=== PATIENT | female | born 1935 | race Caucasian/White ===

== ENCOUNTER 2017-06-12 10:39 | Inpatient (IN) | payer BC, MEDICARE, OTHER ==
[~2017-06-12] VITALS: Ht 162.6 cm; Wt 72.2 kg
[2017-06-12] MEDS ORDERED: SODIUM CHLORIDE 0.9% 1,000 ML IVB ONE (10:51)
[2017-06-12] MEDS ORDERED: LEVOFLOXACIN 500 MG/100 ML PREMIX BAG IV ONE (11:00)
[2017-06-12 11:24] LABS: Hematocrit 36.2 % (36.0-46.0); Hemoglobin 11.7 g/dL (12.2-16.2); Mean Corpuscular Hgb Conc. 32.4 g/dL (32.0-36.0)
[2017-06-12 11:25] LABS: Mean Corpuscular Hemoglobin 26.4 pg (28.0-32.0); Mean Corpuscular Volume 81.4 fL (80.0-100.0); Platelet Count (auto) 471 10^3/uL (140-450); Red Blood Cells 4.44 10^6/uL (4.0-5.20); Red Cell Distribution Width 14.8 % (11.8-14.3); White Blood Cell 25.4 10^3/uL (4.4-10.8)
[2017-06-12 11:28] LABS: Band Neutrophils % (manual) 0; Basophils % (manual) 0 (0.0-2.0); Blast Cells 0; Eosinophils % (manual) 0 (0-7); Metamyelocytes % 0; Myelocytes % 0; Promyelocytes % 0
[2017-06-12 11:33] LABS: Urine Blood 1+ /uL (Negative); Urine Specific Gravity 1.015 (1.001-1.035); Urine WBC 1563 /hpf (0 - 5); Urine WBC Clumps PRESENT /hpf (None Seen)
[2017-06-12 11:35] LABS: Urine Bacteria MODERATE /hpf (None Seen)
[2017-06-12 11:51] LABS: Alanine Aminotransferase 19 U/L (13-56); Albumin 2.5 g/dL (3.4-5.0); Alkaline Phosphatase 125 U/L (45-117); Anion Gap 11 (5-15); Aspartate Aminotransferase 15 U/L (15-37); BUN/Creatinine Ratio 29.3; Bilirubin, Total 1.1 mg/dL (0.2-1.0); Blood Urea Nitrogen 58 mg/dL (7-18); Calcium 12.8 mg/dL (8.5-10.1); Carbon Dioxide 27 mmol/L (21-32); Chloride 93 mmol/L (98-107); GFR African American 31 mL/min; GFR Non-African American 26 mL/min; Glucose 128 mg/dL (74-106); Lymphocytes % (manual) 8 (10.0-50.0); Magnesium 2.4 mg/dL (1.6-2.6); Monocytes % (manual) 5 (0-12); Potassium 3.1 mmol/L (3.5-5.1); Reactive Lymphocytes 3; Sodium 131 mmol/L (136-145); Total Protein 7.9 g/dL (6.4-8.2)
[2017-06-12] MEDS ORDERED: LORazepam 0.5 MG TAB PO PRN (12:30)
[2017-06-12] MEDS ORDERED: NITROGLYCERIN 0.4 MG SL TAB SL PRN (12:30)
[2017-06-12] MEDS ORDERED: FUROSEMIDE 40 MG/4 ML VIAL IV ONE ×2 (12:30→18:00)
[2017-06-12] MEDS ORDERED: SODIUM CHLORIDE 0.9% 1,000 ML IV ONE (12:30)
[2017-06-12] MEDS ORDERED: PROMETHAZINE HCL 25 MG/ML 1ML IV PRN (12:30)
[2017-06-12] MEDS ORDERED: POTASSIUM CHL 20MEQ/50ML 50 ML IV ONE (12:30)
[2017-06-12] MEDS ORDERED: PIPERACILLIN-TAZOB 3.375GM 100 ML IV ONE (12:30)
[2017-06-12] MEDS ORDERED: POTASSIUM CHL 20 Meq TABLET PO ONE ×2 (12:30→18:00)
[2017-06-12] MEDS ORDERED: MORPHINE SULFATE 10 MG/ML INJ 1ML SDV IV PRN (12:30)
[2017-06-12] MEDS ORDERED: TEMAZEPAM 15 MG CAP PO PRN (12:30)
[2017-06-12] MEDS: SODIUM CHLORIDE 0.9% 1,000 ML IV SCH (13:30)
[2017-06-12 14:29] VITALS: BP 124/58
[2017-06-12 18:01] VITALS: BP 106/53
[2017-06-12 18:42] LABS: Hematocrit 30.7 % (36.0-46.0)
[2017-06-12] MEDS: PIPERACILLIN-TAZOB 3.375GM 100 ML IV SCH (19:36)
[2017-06-12 20:00] VITALS: BP 126/59
[2017-06-12 22:00] VITALS: BP 126/59
[2017-06-13 01:13] LABS: Hematocrit 31.6 % (36.0-46.0); Hemoglobin 10.4 g/dL (12.2-16.2)
[2017-06-13] MEDS: SODIUM CHLORIDE 0.9% 1,000 ML IV SCH ×3 (01:20→19:56)
[2017-06-13] MEDS: PIPERACILLIN-TAZOB 3.375GM 100 ML IV SCH ×4 (01:20→19:16)
[2017-06-13 05:00] VITALS: BP 123/57
[2017-06-13 06:48] LABS: Eosinophils # (auto) 0.2 uL; Eosinophils % (auto) 0.7 % (0.0-7.0); Hemoglobin 10.3 g/dL (12.2-16.2); Monocytes # (auto) 1.8 uL
[2017-06-13 06:51] LABS: Basophils # (auto) 0 uL; Basophils % (auto) 0.2 % (0.0-2.0); Hematocrit 31.8 % (36.0-46.0); Lymphocytes # (auto) 1.9 uL; Lymphocytes % (auto) 8.3 % (10.0-50.0); Mean Corpuscular Hemoglobin 26.5 pg (28.0-32.0); Mean Corpuscular Hgb Conc. 32.3 g/dL (32.0-36.0); Monocytes % (auto) 8.3 % (0.0-12.0); Neutrophils # (auto) 18.3 uL; Neutrophils % (auto) 82.5 % (37.0-80.0); Platelet Count (auto) 381 10^3/uL (140-450); Red Blood Cells 3.88 10^6/uL (4.0-5.20); Red Cell Distribution Width 15.2 % (11.8-14.3); White Blood Cell 22.2 10^3/uL (4.4-10.8)
[2017-06-13 07:07] LABS: BUN/Creatinine Ratio 29.4; Bilirubin, Total 0.8 mg/dL (0.2-1.0); Calcium 12.4 mg/dL (8.5-10.1); Potassium 3.4 mmol/L (3.5-5.1); Total Protein 6.8 g/dL (6.4-8.2)
[2017-06-13 09:00] VITALS: BP 144/68
[2017-06-13] MEDS: PANTOPRAZOLE 40 MG TAB PO SCH (10:04)
[2017-06-13] MEDS ORDERED: TRAM50TA2 PO (10:57)
[2017-06-13] MEDS ORDERED: TRIATAB3 PO (10:57)
[2017-06-13] MEDS ORDERED: OXYB15TA12 PO (10:57)
[2017-06-13] MEDS ORDERED: LEVO125T6 PO (10:57)
[2017-06-13] MEDS ORDERED: GABA-497 PO (10:57)
[2017-06-13] MEDS ORDERED: VANCOMYCIN PER PHARMACY 0 MG IV SCH (12:00)
[2017-06-13] MEDS ORDERED: SODIUM CHLORIDE 0.9% 1,000 ML IV ONE (12:00)
[2017-06-13] MEDS ORDERED: hydrALAZINE HCL 20 MG/ML VL IV PRN (12:00)
[2017-06-13 13:00] VITALS: BP 135/65
[2017-06-13] MEDS ORDERED: VANCOMYCIN 1GM/250ML 250 ML IV ONE (13:00)
[2017-06-13 17:01] VITALS: BP 130/51
[2017-06-13 18:09] LABS: BUN/Creatinine Ratio 28.2; Calcium 11.1 mg/dL (8.5-10.1)
[2017-06-13 18:32] LABS: Potassium 2.9 mmol/L (3.5-5.1)
[2017-06-13] MEDS ORDERED: POTASSIUM CHL 20MEQ/50ML 50 ML IV ONE (19:15)
[2017-06-13 22:30] VITALS: BP 128/86
[2017-06-13] MEDS: MORPHINE SULFATE 10 MG/ML INJ 1ML SDV IV PRN (23:51)
[2017-06-14] MEDS: PIPERACILLIN-TAZOB 3.375GM 100 ML IV SCH ×2 (01:14→06:36)
[2017-06-14] MEDS: MORPHINE SULFATE 10 MG/ML INJ 1ML SDV IV PRN ×3 (04:44→17:12)
[2017-06-14 05:31] LABS: Basophils # (auto) 0.1 uL; Basophils % (auto) 0.4 % (0.0-2.0); Hematocrit 31.2 % (36.0-46.0); Lymphocytes # (auto) 2.1 uL; Monocytes # (auto) 1.2 uL; Neutrophils # (auto) 14.4 uL; Neutrophils % (auto) 79.3 % (37.0-80.0); Red Blood Cells 3.83 10^6/uL (4.0-5.20); White Blood Cell 18.2 10^3/uL (4.4-10.8)
[2017-06-14 05:36] LABS: Eosinophils # (auto) 0.3 uL; Eosinophils % (auto) 1.9 % (0.0-7.0); Lymphocytes % (auto) 11.6 % (10.0-50.0); Mean Corpuscular Hemoglobin 26.1 pg (28.0-32.0); Mean Corpuscular Hgb Conc. 32.1 g/dL (32.0-36.0); Mean Corpuscular Volume 81.4 fL (80.0-100.0); Monocytes % (auto) 6.8 % (0.0-12.0); Platelet Count (auto) 366 10^3/uL (140-450); Red Cell Distribution Width 15.1 % (11.8-14.3)
[2017-06-14 05:44] VITALS: BP 115/55
[2017-06-14 05:48] LABS: INR 1.22 (0.9-1.15); Partial Thromboplastin Time 26.4 sec (22.64-33.71); Prothrombin Time 13.3 sec (9.37-12.3)
[2017-06-14 06:03] LABS: BUN/Creatinine Ratio 26.5; Calcium 11.2 mg/dL (8.5-10.1); Magnesium 1.8 mg/dL (1.6-2.6)
[2017-06-14 06:15] LABS: Potassium 2.8 mmol/L (3.5-5.1)
[2017-06-14] MEDS: SODIUM CHLORIDE 0.9% 1,000 ML IV SCH ×2 (06:36→15:30)
[2017-06-14] MEDS: LEVOTHYROXINE SODIUM 50 MCG TAB PO SCH (06:36)
[2017-06-14] MEDS: PANTOPRAZOLE 40 MG TAB PO SCH (09:48)
[2017-06-14] MEDS ORDERED: VANCOMYCIN 1,250 MG in D5W 5% 250 ML IV SCH (10:00)
[2017-06-14 10:16] LABS: Free T4 (Free Thyroxine) 1.08 ng/dL (0.89-1.76); T3 Total 0.37 ng/mL (0.60-1.81)
[2017-06-14] MEDS ORDERED: POTASSIUM CHL 20 Meq TABLET PO ONE ×2 (12:00→23:00)
[2017-06-14] MEDS: POTASSIUM CHL 20MEQ/50ML 50 ML IV SCH ×2 (12:00→14:00)
[2017-06-14 13:03] VITALS: BP 125/51
[2017-06-14] MEDS ORDERED: PIPERACILLIN-TAZOB 3.375GM 50 ML IV ONE (13:45)
[2017-06-14] MEDS ORDERED: MAGNESIUM SULFATE 1GM/100ML 100 ML IV ONE (16:00)
[2017-06-14 17:00] VITALS: BP 138/64
[2017-06-14] MEDS: PIPERACILLIN-TAZOB 3.375GM 50 ML IV SCH (20:45)
[2017-06-14 22:00] VITALS: BP 154/56
[2017-06-14 22:27] LABS: Magnesium 2.2 mg/dL (1.6-2.6); Potassium 3.5 mmol/L (3.5-5.1)
[2017-06-15] MEDS: SODIUM CHLORIDE 0.9% 1,000 ML IV SCH ×3 (02:03→22:14)
[2017-06-15] MEDS: PIPERACILLIN-TAZOB 3.375GM 50 ML IV SCH ×3 (02:04→14:00)
[2017-06-15 05:00] VITALS: BP 159/61
[2017-06-15 06:01] LABS: Basophils # (auto) 0.1 uL; Eosinophils # (auto) 0.1 uL; Hematocrit 32.5 % (36.0-46.0); Hemoglobin 10.5 g/dL (12.2-16.2); Monocytes # (auto) 1.3 uL; White Blood Cell 22.4 10^3/uL (4.4-10.8)
[2017-06-15 06:05] LABS: Basophils % (auto) 0.3 % (0.0-2.0); Eosinophils % (auto) 0.5 % (0.0-7.0); Lymphocytes # (auto) 2.1 uL; Lymphocytes % (auto) 9.3 % (10.0-50.0); Mean Corpuscular Hemoglobin 26.4 pg (28.0-32.0); Mean Corpuscular Hgb Conc. 32.4 g/dL (32.0-36.0); Mean Corpuscular Volume 81.4 fL (80.0-100.0); Monocytes % (auto) 5.7 % (0.0-12.0); Neutrophils # (auto) 18.9 uL; Neutrophils % (auto) 84.2 % (37.0-80.0); Platelet Count (auto) 395 10^3/uL (140-450); Red Blood Cells 3.99 10^6/uL (4.0-5.20); Red Cell Distribution Width 14.7 % (11.8-14.3)
[2017-06-15 06:24] LABS: Calcium 12.3 mg/dL (8.5-10.1); Potassium 3.5 mmol/L (3.5-5.1)
[2017-06-15 06:28] LABS: BUN/Creatinine Ratio 20.5
[2017-06-15] MEDS: LEVOTHYROXINE SODIUM 50 MCG TAB PO SCH (06:44)
[2017-06-15] MEDS: HYDROcodone-ACET 5/325MG TAB PO PRN ×3 (07:57→22:14)
[2017-06-15 10:00] VITALS: BP 132/63
[2017-06-15] MEDS ORDERED: ZOLEDRONIC ACID 4 MG in SODIUM CHL 0.9% 100 ML IV ONE (10:00)
[2017-06-15] MEDS: PANTOPRAZOLE 40 MG TAB PO SCH (10:00)
[2017-06-15] MEDS: MORPHINE SULFATE 10 MG/ML INJ 1ML SDV IV PRN (11:51)
[2017-06-15 13:00] VITALS: BP 138/64
[2017-06-15 13:56] LABS: Eosinophils # (auto) 0.1 uL; Eosinophils % (auto) 0.6 % (0.0-7.0)
[2017-06-15 13:58] LABS: Basophils # (auto) 0 uL; Basophils % (auto) 0.2 % (0.0-2.0); Hematocrit 32.5 % (36.0-46.0); Hemoglobin 10.3 g/dL (12.2-16.2); Lymphocytes # (auto) 1.7 uL; Mean Corpuscular Hgb Conc. 31.7 g/dL (32.0-36.0); Mean Corpuscular Volume 82.1 fL (80.0-100.0); Monocytes # (auto) 0.9 uL; Monocytes % (auto) 4.2 % (0.0-12.0); Neutrophils # (auto) 18.6 uL; Nucleated Red Blood Cells % 0.1 %; Platelet Count (auto) 373 10^3/uL (140-450); Red Blood Cells 3.96 10^6/uL (4.0-5.20); Red Cell Distribution Width 15.3 % (11.8-14.3); White Blood Cell 21.4 10^3/uL (4.4-10.8)
[2017-06-15 14:12] LABS: BUN/Creatinine Ratio 20.1; Calcium 12.3 mg/dL (8.5-10.1); Potassium 3.7 mmol/L (3.5-5.1)
[2017-06-15 17:43] VITALS: BP 148/72
[2017-06-15] MEDS ORDERED: SODIUM CHLORIDE 0.9% 1,000 ML IV ONE (17:45)
[2017-06-15] MEDS ORDERED: LEVOFLOXACIN 500MG 100 ML IV SCH (17:45)
[2017-06-15] MEDS ORDERED: cefTRIAXone 1GM/50ML D5W 50 ML IV SCH (17:45)
[2017-06-15] MEDS: ACETAMINOPHEN 500 MG TAB PO PRN (20:00)
[2017-06-15] MEDS: cefTRIAXone 1GM/50ML D5W 50 ML IV SCH (20:27)
[2017-06-15 22:00] VITALS: BP 127/61
[2017-06-16 05:00] VITALS: BP 137/62
[2017-06-16 05:18] LABS: Urine Bacteria MANY /hpf (None Seen); Urine Blood 2+ /uL (Negative); Urine Mucus FEW (None Seen); Urine Specific Gravity 1.016 (1.001-1.035); Urine WBC 1839 /hpf (0 - 5); Urine WBC Clumps PRESENT /hpf (None Seen)
[2017-06-16] MEDS: HYDROcodone-ACET 5/325MG TAB PO PRN ×5 (05:57→22:55)
[2017-06-16 06:38] LABS: Basophils # (auto) 0.1 uL; Basophils % (auto) 0.4 % (0.0-2.0); Eosinophils # (auto) 0.2 uL; Eosinophils % (auto) 1.2 % (0.0-7.0); Hematocrit 28.4 % (36.0-46.0); Hemoglobin 9.2 g/dL (12.2-16.2); Lymphocytes # (auto) 1.1 uL; Lymphocytes % (auto) 5.3 % (10.0-50.0); Mean Corpuscular Hemoglobin 26.5 pg (28.0-32.0); Mean Corpuscular Hgb Conc. 32.4 g/dL (32.0-36.0); Mean Corpuscular Volume 81.9 fL (80.0-100.0); Monocytes # (auto) 0.9 uL; Monocytes % (auto) 4.6 % (0.0-12.0); Neutrophils # (auto) 18.1 uL; Neutrophils % (auto) 88.5 % (37.0-80.0); Platelet Count (auto) 297 10^3/uL (140-450); Red Blood Cells 3.46 10^6/uL (4.0-5.20); Red Cell Distribution Width 15.2 % (11.8-14.3); White Blood Cell 20.5 10^3/uL (4.4-10.8)
[2017-06-16 06:46] LABS: Calcium 11.4 mg/dL (8.5-10.1); Magnesium 2.2 mg/dL (1.6-2.6); Potassium 4.1 mmol/L (3.5-5.1)
[2017-06-16] MEDS: LEVOTHYROXINE SODIUM 50 MCG TAB PO SCH (07:01)
[2017-06-16 09:00] VITALS: BP 125/56
[2017-06-16] MEDS: PANTOPRAZOLE 40 MG TAB PO SCH (09:51)
[2017-06-16] MEDS: cefTRIAXone 1GM/50ML D5W 50 ML IV SCH (09:52)
[2017-06-16] MEDS: LEVOFLOXACIN 250MG 50 ML IV SCH (10:00)
[2017-06-16] MEDS: SODIUM CHLORIDE 0.9% 1,000 ML IV SCH ×2 (11:00→17:40)
[2017-06-16] MEDS: MORPHINE SULFATE 10 MG/ML INJ 1ML SDV IV PRN ×2 (12:41→23:29)
[2017-06-16 13:00] VITALS: BP 117/56
[2017-06-16 17:00] VITALS: BP 127/63
[2017-06-16 22:00] VITALS: BP 139/66
[2017-06-17] MEDS ORDERED: KETOROLAC TROMETH 30 MG/ML 1ML VIAL IV ONE (00:45)
[2017-06-17] MEDS: SODIUM CHLORIDE 0.9% 1,000 ML IV SCH ×4 (04:00→21:35)
[2017-06-17 05:00] VITALS: BP 133/62
[2017-06-17 06:19] LABS: Eosinophils # (auto) 0.3 uL
[2017-06-17 06:21] LABS: Basophils # (auto) 0.1 uL; Basophils % (auto) 0.4 % (0.0-2.0); Eosinophils % (auto) 2.2 % (0.0-7.0); Hematocrit 28.2 % (36.0-46.0); Lymphocytes # (auto) 1.5 uL; Lymphocytes % (auto) 9.7 % (10.0-50.0); Mean Corpuscular Hemoglobin 26.2 pg (28.0-32.0); Monocytes # (auto) 1.1 uL; Monocytes % (auto) 6.7 % (0.0-12.0); Neutrophils # (auto) 12.8 uL; Platelet Count (auto) 294 10^3/uL (140-450); Red Blood Cells 3.44 10^6/uL (4.0-5.20); Red Cell Distribution Width 15.2 % (11.8-14.3); White Blood Cell 15.8 10^3/uL (4.4-10.8)
[2017-06-17] MEDS: LEVOTHYROXINE SODIUM 50 MCG TAB PO SCH (06:28)
[2017-06-17 06:35] LABS: INR 1.2 (0.9-1.15); Partial Thromboplastin Time 27.5 sec (22.64-33.71); Prothrombin Time 13.1 sec (9.37-12.3)
[2017-06-17 06:43] LABS: Albumin 1.8 g/dL (3.4-5.0); BUN/Creatinine Ratio 23.1; Bilirubin, Total 0.3 mg/dL (0.2-1.0); Phosphorus 2.8 mg/dL (2.5-4.90); Total Protein 6.3 g/dL (6.4-8.2)
[2017-06-17 09:00] VITALS: BP 133/61
[2017-06-17] MEDS: cefTRIAXone 1GM/50ML D5W 50 ML IV SCH (09:07)
[2017-06-17] MEDS ORDERED: LEVOFLOXACIN 250MG 50 ML IV SCH (10:00)
[2017-06-17] MEDS: PANTOPRAZOLE 40 MG TAB PO SCH (10:22)
[2017-06-17] MEDS: LEVOFLOXACIN 250MG 50 ML IV SCH (10:23)
[2017-06-17 12:24] VITALS: BP 121/51
[2017-06-17] MEDS: HYDROcodone-ACET 5/325MG TAB PO PRN ×3 (13:12→21:35)
[2017-06-17] MEDS ORDERED: ZOLEDRONIC ACID 2 MG in SODIUM CHL 0.9% 100 ML IV ONE (15:30)
[2017-06-17] MEDS ORDERED: ZOLEDRONIC ACID 3 MG in SODIUM CHL 0.9% 100 ML IV ONE (15:30)
[2017-06-17] MEDS: ACETAMINOPHEN 500 MG TAB PO PRN (15:59)
[2017-06-17 16:33] VITALS: BP 150/77
[2017-06-17 22:08] VITALS: BP 135/66
[2017-06-18] MEDS: HYDROcodone-ACET 5/325MG TAB PO PRN ×4 (02:48→15:47)
[2017-06-18] MEDS: SODIUM CHLORIDE 0.9% 1,000 ML IV SCH (03:49)
[2017-06-18 05:06] VITALS: BP 134/56
[2017-06-18 05:58] LABS: Basophils # (auto) 0.1 uL; Eosinophils # (auto) 0.4 uL; Neutrophils # (auto) 10.2 uL; Platelet Count (auto) 289 10^3/uL (140-450)
[2017-06-18 06:01] LABS: Basophils % (auto) 0.4 % (0.0-2.0); Eosinophils % (auto) 3.3 % (0.0-7.0); Hematocrit 26.9 % (36.0-46.0); Hemoglobin 8.7 g/dL (12.2-16.2); Lymphocytes # (auto) 1.5 uL; Lymphocytes % (auto) 11.3 % (10.0-50.0); Mean Corpuscular Hemoglobin 26.3 pg (28.0-32.0); Mean Corpuscular Hgb Conc. 32.3 g/dL (32.0-36.0); Mean Corpuscular Volume 81.5 fL (80.0-100.0); Monocytes % (auto) 7.6 % (0.0-12.0); Neutrophils % (auto) 77.4 % (37.0-80.0); Red Cell Distribution Width 15.3 % (11.8-14.3); White Blood Cell 13.2 10^3/uL (4.4-10.8)
[2017-06-18 06:09] LABS: Albumin 1.8 g/dL (3.4-5.0); BUN/Creatinine Ratio 24.3; Bilirubin, Total 0.2 mg/dL (0.2-1.0); Calcium 9.4 mg/dL (8.5-10.1); Potassium 3.1 mmol/L (3.5-5.1); Total Protein 6.1 g/dL (6.4-8.2)
[2017-06-18] MEDS: LEVOTHYROXINE SODIUM 50 MCG TAB PO SCH (06:37)
[2017-06-18] MEDS: HYDROmorphone HCL 2 MG/ML VL IV PRN ×3 (07:47→15:13)
[2017-06-18] MEDS: cefTRIAXone 1GM/50ML D5W 50 ML IV SCH (08:47)
[2017-06-18 09:00] VITALS: BP 139/66
[2017-06-18] MEDS ORDERED: POTASSIUM CHL 20 Meq TABLET PO ONE (09:45)
[2017-06-18] MEDS ORDERED: SOD CHL 0.45% WITH 20MEQ KCL 1,000 ML IV SCH (09:45)
[2017-06-18] MEDS: PANTOPRAZOLE 40 MG TAB PO SCH (10:15)
[2017-06-18] MEDS: LEVOFLOXACIN 250MG 50 ML IV SCH (10:16)
[2017-06-18 13:04] VITALS: BP 132/65
[2017-06-18 17:06] VITALS: BP 147/73
[2017-06-18] MEDS ORDERED: HYDROmorphone HCL 2 MG/ML VL IV PRN (17:15)
== END 2017-06-18 20:50 | DRG 871 ==
LOC: EDBD 10:39 → ER 10:39 → TELE 10:40 → TELE-EAST 14:30
PROVIDERS: ADMIT Internal Medicine; ATTEND Internal Medicine
DX: A41.51 Sepsis due to Escherichia coli [E. coli] (principal); E43 Unspecified severe protein-calorie malnutrition; N17.0 Acute kidney failure with tubular necrosis; N13.30 Unspecified hydronephrosis; E86.0 Dehydration; N39.0 Urinary tract infection, site not specified; K76.89 Other specified diseases of liver; E83.52 Hypercalcemia; E03.9 Hypothyroidism, unspecified; E78.5 Hyperlipidemia, unspecified; I12.9 Hypertensive chronic kidney disease with stage 1 through stage 4 chronic kidney disease, or unspecified chronic kidney disease; E87.6 Hypokalemia; I25.10 Atherosclerotic heart disease of native coronary artery without angina pectoris; K57.90 Diverticulosis of intestine, part unspecified, without perforation or abscess without bleeding; M43.10 Spondylolisthesis, site unspecified; N18.9 Chronic kidney disease, unspecified; T36.8X5A Adverse effect of other systemic antibiotics, initial encounter; Z79.899 Other long term (current) drug therapy; Z85.51 Personal history of malignant neoplasm of bladder; Z86.73 Personal history of transient ischemic attack (TIA), and cerebral infarction without residual deficits; Z98.1 Arthrodesis status; Z90.89 Acquired absence of other organs
CPT/HCPCS: 36415; 51702; 71010; 71250; 74176; 76775; 76856; 78306; 80048; 80053; 80202; 81001; 83605; 83735; 83970; 84100; 84132; 84439; 84443; 84480; 84484; 85007; 85014; 85018; 85025; 85027; 85045; 85610; 85730; 87040; 87077; 87086; 87088; 87186; 87493; 93005; 96361; 96374; 96375; 97163; J0696; J1885; J1956; J2543; J3489; J7060

== ENCOUNTER 2017-08-08 16:34 | Inpatient (IN) | payer BC ==
[~2017-08-08] VITALS: Ht 172.7 cm; Wt 71.9 kg
[~2017-08-08 16:34] MED LIST: GABA300C10 PO; LEVO125T7 PO; OXYB15TA12 PO; TRAM50TA2 PO; TRIA50TA2 PO
[2017-08-09 00:36] LABS: Basophils # (auto) 0.1 uL; Basophils % (auto) 0.4 % (0.0-2.0); Hemoglobin 7.9 g/dL (12.2-16.2); White Blood Cell 20.6 10^3/uL (4.4-10.8)
[2017-08-09 00:37] LABS: Eosinophils # (auto) 0.8 uL; Eosinophils % (auto) 4.1 % (0.0-7.0); Hematocrit 24.9 % (36.0-46.0); Lymphocytes # (auto) 2.7 uL; Lymphocytes % (auto) 12.9 % (10.0-50.0); Mean Corpuscular Hemoglobin 24.6 pg (28.0-32.0); Mean Corpuscular Hgb Conc. 31.8 g/dL (32.0-36.0); Mean Corpuscular Volume 77.5 fL (80.0-100.0); Monocytes # (auto) 1.6 uL; Monocytes % (auto) 7.8 % (0.0-12.0); Neutrophils # (auto) 15.4 uL; Neutrophils % (auto) 74.8 % (37.0-80.0); Platelet Count (auto) 456 10^3/uL (140-450); Red Blood Cells 3.22 10^6/uL (4.0-5.20); Red Cell Distribution Width 17.1 % (11.8-14.3)
[2017-08-09 00:49] LABS: Albumin 2.1 g/dL (3.4-5.0); BUN/Creatinine Ratio 12.8; Calcium 10.6 mg/dL (8.5-10.1); Potassium 3.6 mmol/L (3.5-5.1)
[2017-08-09 00:52] LABS: Bilirubin, Total 0.3 mg/dL (0.2-1.0)
[2017-08-09] MEDS ORDERED: ACETAMINOPHEN 500 MG TAB PO PRN (03:15)
[2017-08-09] MEDS ORDERED: ONDANSETRON HCL 4 MG/2 ML VIAL IV PRN (03:15)
[2017-08-09] MEDS ORDERED: MORPHINE SULFATE 4 MG/ML SYR/VIAL IV PRN (03:15)
[2017-08-09 04:21] LABS: Urine Bacteria FEW /hpf (None Seen); Urine Blood Negative /uL (Negative); Urine Mucus FEW (None Seen); Urine Specific Gravity 1.014 (1.001-1.035); Urine WBC 105 /hpf (0 - 5)
[2017-08-09] MEDS ORDERED: VANCOMYCIN PER PHARMACY 0 MG IV SCH (05:15)
[2017-08-09] MEDS ORDERED: VANCOMYCIN 1GM/250ML 250 ML IV ONE (06:00)
[2017-08-09] MEDS: PIPERACILLIN-TAZOB 3.375GM 50 ML IV SCH ×3 (06:35→17:48)
[2017-08-09] MEDS: SODIUM CHLORIDE 0.9% 1,000 ML IV SCH ×2 (06:40→17:48)
[2017-08-09] MEDS: GABAPENTIN 400 MG CAP PO SCH ×3 (06:57→21:35)
[2017-08-09 07:47] LABS: Basophils # (auto) 0.1 uL; Basophils % (auto) 0.5 % (0.0-2.0); Eosinophils # (auto) 0.7 uL; Monocytes # (auto) 1.7 uL
[2017-08-09 07:49] LABS: Eosinophils % (auto) 3.4 % (0.0-7.0); Hematocrit 24.9 % (36.0-46.0); Hemoglobin 7.8 g/dL (12.2-16.2); Lymphocytes # (auto) 2.7 uL; Mean Corpuscular Hemoglobin 24.4 pg (28.0-32.0); Mean Corpuscular Hgb Conc. 31.4 g/dL (32.0-36.0); Mean Corpuscular Volume 77.7 fL (80.0-100.0); Monocytes % (auto) 7.8 % (0.0-12.0); Neutrophils # (auto) 15.9 uL; Neutrophils % (auto) 75.3 % (37.0-80.0); Platelet Count (auto) 481 10^3/uL (140-450); Red Blood Cells 3.21 10^6/uL (4.0-5.20); Red Cell Distribution Width 17.5 % (11.8-14.3); White Blood Cell 21.1 10^3/uL (4.4-10.8)
[2017-08-09] MEDS ORDERED: VANCOMYCIN 1GM/250ML 250 ML IV SCH (08:00)
[2017-08-09 08:56] LABS: BUN/Creatinine Ratio 12.9; Calcium 10.8 mg/dL (8.5-10.1)
[2017-08-09 14:00] VITALS: BP 139/58
[2017-08-09] MEDS: HYDROcodone-ACET 5/325MG TAB PO PRN ×2 (14:33→20:43)
[2017-08-09 16:54] VITALS: BP 129/55
[2017-08-09 22:00] VITALS: BP 114/47
[2017-08-10] MEDS: PIPERACILLIN-TAZOB 3.375GM 50 ML IV SCH ×3 (00:22→11:42)
[2017-08-10] MEDS: GABAPENTIN 400 MG CAP PO SCH ×3 (05:43→21:41)
[2017-08-10 05:46] VITALS: BP 118/55
[2017-08-10 07:17] LABS: Basophils # (auto) 0.1 uL; Basophils % (auto) 0.3 % (0.0-2.0); Eosinophils # (auto) 0.7 uL; Eosinophils % (auto) 3.7 % (0.0-7.0); Hematocrit 26.7 % (36.0-46.0); Hemoglobin 7.9 g/dL (12.2-16.2); Lymphocytes # (auto) 2.1 uL; Lymphocytes % (auto) 10.4 % (10.0-50.0); Mean Corpuscular Hemoglobin 24.1 pg (28.0-32.0); Mean Corpuscular Hgb Conc. 29.7 g/dL (32.0-36.0); Mean Corpuscular Volume 81.2 fL (80.0-100.0); Monocytes # (auto) 1.3 uL; Monocytes % (auto) 6.3 % (0.0-12.0); Neutrophils # (auto) 15.9 uL; Neutrophils % (auto) 79.3 % (37.0-80.0); Platelet Count (auto) 453 10^3/uL (140-450); Red Blood Cells 3.29 10^6/uL (4.0-5.20); Red Cell Distribution Width 17.7 % (11.8-14.3); White Blood Cell 20.1 10^3/uL (4.4-10.8)
[2017-08-10 07:40] LABS: BUN/Creatinine Ratio 13.9; Calcium 10.5 mg/dL (8.5-10.1); Potassium 3.4 mmol/L (3.5-5.1)
[2017-08-10 09:00] VITALS: BP 110/44
[2017-08-10] MEDS: SODIUM CHLORIDE 0.9% 1,000 ML IV SCH ×2 (10:00→21:41)
[2017-08-10 10:09] LABS: INR 1.12 (0.9-1.15); Prothrombin Time 12.2 sec (9.37-12.3)
[2017-08-10] MEDS: HYDROcodone-ACET 5/325MG TAB PO PRN ×2 (11:15→17:19)
[2017-08-10 13:00] VITALS: BP 117/47
[2017-08-10] MEDS ORDERED: FLUCONAZOLE 100 MG TAB PO ONE (16:00)
[2017-08-10 16:44] VITALS: BP 114/46
[2017-08-10 22:13] VITALS: BP 114/58
[2017-08-11] MEDS: HYDROcodone-ACET 5/325MG TAB PO PRN ×2 (01:44→10:58)
[2017-08-11 05:05] VITALS: BP 131/60
[2017-08-11] MEDS: GABAPENTIN 400 MG CAP PO SCH ×3 (05:44→22:12)
[2017-08-11] MEDS ORDERED: IOHEXOL 350 MG/ML 100ML IJ ONE (08:17)
[2017-08-11] MEDS ORDERED: LIDOCAINE 2%HCL (LOCAL ANESTH.) INJ 20ML MDV ONE (08:17)
[2017-08-11 09:16] VITALS: BP 123/56
[2017-08-11] MEDS ORDERED: fentaNYL CITRATE 100 MCG/2 ML VL ONE (09:29)
[2017-08-11] MEDS ORDERED: MIDAZOLAM HCL 1MG/1ML-2 ML VIAL ONE (09:30)
[2017-08-11] MEDS: FLUCONAZOLE 100 MG TAB PO SCH (09:39)
[2017-08-11] MEDS: SODIUM CHLORIDE 0.9% 1,000 ML IV SCH (12:03)
[2017-08-11 13:00] VITALS: BP 143/60
[2017-08-11] MEDS ORDERED: FLUC200T35 PO (14:25)
[2017-08-11 16:15] VITALS: BP 115/52
[2017-08-11 22:00] VITALS: BP 141/60
[2017-08-12 05:54] VITALS: BP 147/70
[2017-08-12] MEDS: GABAPENTIN 400 MG CAP PO SCH ×2 (06:00→14:00)
[2017-08-12 09:00] VITALS: BP 152/60
[2017-08-12] MEDS: HYDROcodone-ACET 5/325MG TAB PO PRN (09:13)
[2017-08-12] MEDS: FLUCONAZOLE 100 MG TAB PO SCH (11:40)
[2017-08-12 13:01] VITALS: BP 121/55
== END 2017-08-12 14:05 | disposition hospice, home (50) | DRG 698 ==
LOC: EDBD 16:34 → EDUNIT# 16:34 → ER 16:34 → OVERFLOW 22:36 → CENTRAL 08-09 13:38
PROVIDERS: ADMIT Nurse Practitioner Family; ATTEND Hospitalist
PROC: 0T25X0Z Change Drainage Device in Kidney, External Approach (ICD-10-PCS; principal; 2017-08-11)
DX: N99.522 Malfunction of incontinent external stoma of urinary tract (principal); A41.9 Sepsis, unspecified organism; E44.0 Moderate protein-calorie malnutrition; D64.9 Anemia, unspecified; N13.5 Crossing vessel and stricture of ureter without hydronephrosis; E87.1 Hypo-osmolality and hyponatremia; B37.49 Other urogenital candidiasis; N39.0 Urinary tract infection, site not specified; N32.0 Bladder-neck obstruction; I10 Essential (primary) hypertension; I25.10 Atherosclerotic heart disease of native coronary artery without angina pectoris; Y84.8 Other medical procedures as the cause of abnormal reaction of the patient, or of later complication, without mention of misadventure at the time of the procedure; Z79.899 Other long term (current) drug therapy; Z80.9 Family history of malignant neoplasm, unspecified; Z82.3 Family history of stroke; Z82.49 Family history of ischemic heart disease and other diseases of the circulatory system; Z85.51 Personal history of malignant neoplasm of bladder; Z85.528 Personal history of other malignant neoplasm of kidney; Z86.73 Personal history of transient ischemic attack (TIA), and cerebral infarction without residual deficits; Z98.51 Tubal ligation status; Z68.24 Body mass index [BMI] 24.0-24.9, adult
CPT/HCPCS: 36415; 74176; 74425; 76000; 80048; 80053; 81001; 83605; 84443; 85025; 85610; 87040; 87086; 96365; 99152; C1729; J2250; J2543

== ENCOUNTER 2017-08-15 11:32 | Inpatient (IN) | payer MEDICARE, BC ==
[~2017-08-15] VITALS: Ht 167.6 cm; Wt 63.5 kg
[~2017-08-15 11:32] MED LIST changes: +FLUC200T35 PO
[2017-08-15 12:26] LABS: Hematocrit 24.8 % (36.0-46.0); Hemoglobin 7.7 g/dL (12.2-16.2); Mean Corpuscular Hemoglobin 24.2 pg (28.0-32.0); Mean Corpuscular Volume 77.9 fL (80.0-100.0); Platelet Count (auto) 512 10^3/uL (140-450); Red Blood Cells 3.18 10^6/uL (4.0-5.20); Red Cell Distribution Width 17.8 % (11.8-14.3)
[2017-08-15 12:40] LABS: White Blood Cell 39.3 10^3/uL (4.4-10.8)
[2017-08-15 12:42] LABS: Band Neutrophils % (manual) 0; Basophils % (manual) 0 (0.0-2.0); Blast Cells 0; Metamyelocytes % 0; Myelocytes % 0; Promyelocytes % 0; Reactive Lymphocytes 0
[2017-08-15 12:47] LABS: Alanine Aminotransferase 11 U/L (13-56); Albumin 2.3 g/dL (3.4-5.0); Alkaline Phosphatase 88 U/L (45-117); Amylase 29 U/L (25-115); Anion Gap 8 (5-15); Aspartate Aminotransferase 10 U/L (15-37); BUN/Creatinine Ratio 17.7; Bilirubin, Total 0.1 mg/dL (0.2-1.0); Blood Urea Nitrogen 17 mg/dL (7-18); Calcium 11.2 mg/dL (8.5-10.1); Carbon Dioxide 23 mmol/L (21-32); Chloride 104 mmol/L (98-107); GFR African American 72 mL/min; GFR Non-African American 59 mL/min; Glucose 127 mg/dL (74-106); Lipase 81 U/L (73-393); Sodium 135 mmol/L (136-145); Total Protein 7.3 g/dL (6.4-8.2)
[2017-08-15 14:16] LABS: Eosinophils % (manual) 2 (0-7); Lymphocytes % (manual) 2 (10.0-50.0); Monocytes % (manual) 2 (0-12)
[2017-08-15] MEDS ORDERED: ONDANSETRON HCL 4 MG/2 ML VIAL IV ONE (18:30)
[2017-08-15] MEDS ORDERED: MORPHINE SULFATE 4 MG/ML SYR/VIAL IV ONE (18:30)
[2017-08-15] MEDS ORDERED: TEMAZEPAM 15 MG CAP PO PRN (22:00)
[2017-08-15] MEDS ORDERED: ACETAMINOPHEN 325 MG TAB PO PRN (22:00)
[2017-08-15] MEDS ORDERED: ONDANSETRON HCL 4 MG/2 ML VIAL IV PRN (22:00)
[2017-08-15] MEDS ORDERED: MORPHINE SULF INJ 2 MG/ML SYRINGE 1ML IV PRN (22:00)
[2017-08-15] MEDS ORDERED: LEVOFLOXACIN 500MG 100 ML IV ONE (22:00)
[2017-08-15] MEDS: FAMOTIDINE 20 MG TAB PO SCH (23:17)
[2017-08-15] MEDS: GABAPENTIN 400 MG CAP PO SCH (23:17)
[2017-08-16] MEDS: GABAPENTIN 400 MG CAP PO SCH ×3 (06:00→21:39)
[2017-08-16 06:21] LABS: Basophils # (auto) 0 uL; Basophils % (auto) 0.1 % (0.0-2.0); Hemoglobin 8.1 g/dL (12.2-16.2); Neutrophils # (auto) 35.1 uL
[2017-08-16 06:22] LABS: Eosinophils # (auto) 0.1 uL; Eosinophils % (auto) 0.2 % (0.0-7.0); Hematocrit 26.4 % (36.0-46.0); Lymphocytes # (auto) 2.6 uL; Lymphocytes % (auto) 6.6 % (10.0-50.0); Mean Corpuscular Hgb Conc. 30.8 g/dL (32.0-36.0); Monocytes # (auto) 1.8 uL; Monocytes % (auto) 4.4 % (0.0-12.0); Neutrophils % (auto) 88.7 % (37.0-80.0); Platelet Count (auto) 553 10^3/uL (140-450); Red Blood Cells 3.39 10^6/uL (4.0-5.20); Red Cell Distribution Width 17.6 % (11.8-14.3)
[2017-08-16 06:28] LABS: White Blood Cell 39.6 10^3/uL (4.4-10.8)
[2017-08-16] MEDS: LEVOTHYROXINE SODIUM 50 MCG TAB PO SCH (06:39)
[2017-08-16 06:40] LABS: Potassium 3.9 mmol/L (3.5-5.1)
[2017-08-16 06:43] LABS: Albumin 2.5 g/dL (3.4-5.0); Calcium 11.7 mg/dL (8.5-10.1)
[2017-08-16 06:47] LABS: Bilirubin, Total 0.2 mg/dL (0.2-1.0); Total Protein 7.6 g/dL (6.4-8.2)
[2017-08-16] MEDS: TRIAMTERENE/HCTZ 75/50MG TABLET PO SCH ×2 (10:00→10:08)
[2017-08-16] MEDS: ENOXAPARIN SOD 40 MG/0.4 ML SYRINGE SC SCH (10:04)
[2017-08-16] MEDS: LEVOFLOXACIN 500MG 100 ML IV SCH (10:04)
[2017-08-16] MEDS: HYDROcodone-ACET 5/325MG TAB PO PRN ×3 (10:04→18:49)
[2017-08-16] MEDS: FAMOTIDINE 20 MG TAB PO SCH ×2 (10:04→21:40)
[2017-08-16] MEDS: OXYBUTYNIN CHL 5 MG TAB PO SCH (10:04)
[2017-08-16] MEDS ORDERED: LIDOCAINE 2%HCL (LOCAL ANESTH.) INJ 20ML MDV ONE (12:02)
[2017-08-16] MEDS ORDERED: IOHEXOL 300 MG/ML 100ML BOTTLE IJ ONE (12:41)
[2017-08-16] MEDS ORDERED: MIDAZOLAM HCL 1MG/1ML-2 ML VIAL ONE (12:43)
[2017-08-16] MEDS ORDERED: fentaNYL CITRATE 100 MCG/2 ML VL ONE (12:44)
[2017-08-16 14:30] LABS: Urine Bacteria FEW /hpf (None Seen); Urine Blood 3+ /uL (Negative); Urine Specific Gravity 1.016 (1.001-1.035); Urine WBC 649 /hpf (0 - 5)
[2017-08-16 16:13] VITALS: BP 120/55
[2017-08-16 17:00] VITALS: BP 120/51
[2017-08-16] MEDS ORDERED: LEVO125T7 PO (18:23)
[2017-08-16] MEDS ORDERED: HYDR-531 PO (18:24)
[2017-08-16] MEDS ORDERED: FAMO-12 PO (18:26)
[2017-08-17 05:00] VITALS: BP 141/65
[2017-08-17] MEDS: LEVOTHYROXINE SODIUM 50 MCG TAB PO SCH (06:09)
[2017-08-17] MEDS: GABAPENTIN 400 MG CAP PO SCH ×2 (06:09→16:50)
[2017-08-17 07:57] VITALS: BP 147/70
[2017-08-17 08:00] VITALS: BP 147/70
[2017-08-17] MEDS: HYDROcodone-ACET 5/325MG TAB PO PRN ×2 (09:25→13:53)
[2017-08-17] MEDS: TRIAMTERENE/HCTZ 75/50MG TABLET PO SCH (09:27)
[2017-08-17] MEDS: FAMOTIDINE 20 MG TAB PO SCH (09:28)
[2017-08-17] MEDS: LEVOFLOXACIN 500MG 100 ML IV SCH (09:28)
[2017-08-17] MEDS: OXYBUTYNIN CHL 5 MG TAB PO SCH (09:28)
[2017-08-17] MEDS: ENOXAPARIN SOD 40 MG/0.4 ML SYRINGE SC SCH (09:28)
[2017-08-17 11:22] VITALS: BP 147/70
[2017-08-17 11:35] VITALS: BP 124/52
[2017-08-17] MEDS ORDERED: MEROPENEM 1gm/20ml IVPUSH 20 ML IV SCH (16:00)
[2017-08-17 16:55] VITALS: BP 109/54
== END 2017-08-17 17:50 | disposition home or self-care (01) | DRG 699 ==
LOC: EDBD 11:32 → ER 11:32 → OVERFLOW 11:33 → EAST 08-16 15:40
PROVIDERS: ADMIT Nurse Practitioner; ATTEND Internal Medicine
PROC: 0T773DZ Dilation of Left Ureter with Intraluminal Device, Percutaneous Approach (ICD-10-PCS; principal; 2017-08-16)
PROC: 0T25X0Z Change Drainage Device in Kidney, External Approach (ICD-10-PCS; 2017-08-16)
DX: T83.012A Breakdown (mechanical) of nephrostomy catheter, initial encounter (principal); N39.0 Urinary tract infection, site not specified; C78.00 Secondary malignant neoplasm of unspecified lung; N13.30 Unspecified hydronephrosis; C67.9 Malignant neoplasm of bladder, unspecified; D72.829 Elevated white blood cell count, unspecified; E78.5 Hyperlipidemia, unspecified; I10 Essential (primary) hypertension; I25.10 Atherosclerotic heart disease of native coronary artery without angina pectoris; I70.8 Atherosclerosis of other arteries; Y73.2 Prosthetic and other implants, materials and accessory gastroenterology and urology devices associated with adverse incidents; Z82.3 Family history of stroke; Z80.9 Family history of malignant neoplasm, unspecified; Z82.49 Family history of ischemic heart disease and other diseases of the circulatory system; Z85.51 Personal history of malignant neoplasm of bladder; Z86.73 Personal history of transient ischemic attack (TIA), and cerebral infarction without residual deficits
CPT/HCPCS: 36415; 50433; 50435; 74176; 75984; 76000; 80053; 81001; 82150; 83605; 83690; 84484; 85007; 85025; 85027; 87040; 93005; 94761; 96365; 96375; 96379; C1729; C2625; J1956; J2250; J2405